=== PATIENT | male | born 1970 | race Caucasian/White ===

== ENCOUNTER 2017-03-01 13:12 | Day surgery (SDC) | payer BC ==
--- NOTE | ~2017-03-01 | OP ---
Record Of Operation [facility] [address] [place]. [address] NAME: AYAD SOLOMON : 70 STATUS : [facility]#: [id number] AGE: 46 ADM/REG DATE : 03/01/17 MR#: [id number] REPORT SERV DATE: 03/02/17 DICTATED BY: SHUKRI HUBBARD DATE: 03/01/17 REPORT STATUS : Draft TRANSCRIBED BY: RONNY DATE: 03/01/17 DATE OF PROCEDURE: PREPROCEDURE DIAGNOSIS: Thrombosclerosis. POSTPROCEDURE DIAGNOSIS: Thrombosclerosis. PROCEDURE: Right IJ port placement with ultrasound and fluoroscopic guidance. FINISHING LAB TECHNICIAN: Shelby. DESCRIPTION OF PROCEDURE: The patient was taken to the operating room, induced under MAC anesthetic, prepped and draped in the usual sterile fashion. An ultrasound was used to identify both the right and left internal jugular veins, these were larger lateral and anterior to the pulsatile carotid and they both compressed easily. Once the copy was placed on the chart, then the patient was prepped and draped. Local anesthetic was injected just above the clavicle at the neck. Ultrasound was used to identify the right internal jugular. The aspirating needle was used to penetrate the vein. There was a venous flush. The syringe was removed. A wire placed via Seldinger technique. Fluoro confirmed placement in the superior vena cava. The needle was removed and the wire was pinned to the drapes. Then 2 x 2 blocks was injected with local anesthetic. Two finger breaths below the clavicle, 2 cm incision made with a scalpel blade and a port pocket was created using cautery. The port was sewn into place with stay sutures on either side. Both of these were tagged and then local anesthetic was injected from the port pocket site to the neck incision. A stab incision was made over the wire at the neck and then the tunneler which was attached already to flush tubing was run from the port pocket site to the lateral neck incision. Care was brought out through the neck incision. The tunnel was cut off the tubing on a diagonal and then great care was taken in placement of the obturator over the wire using fluoro and pressure to stabilize the neck and overlying skin in order to guide the obturator through the right internal jugular to the SVC. The obturator and wire were removed. The tubing placed down the sheath to 20 cm and aspirated and flushed easily. It was held in place at the neck incision as the sheath was removed. Again, it flushed easily. Fluoro confirmed placement of the tip at the superior vena cava just above the right atrium. Then, the tubing was tagged using a rubber shod was cut to size, dilated, attached to the port and locked into place. The port aspirated and flushed easily with a Ormero needle. Then, the port was placed into the pocket. The two stay sutures were tied and cut. The port pocket site was closed with interrupted 3-0 Vicryl suture followed by 4-0 Monocryl. The neck site was closed with an interrupted 3-0 Vicryl. The patient was cleaned and dried followed by benzoin, Steri-Strips, Telfa, and Tegaderm. He tolerated the procedure well and chest x-ray will be obtained in recovery. JOSÉ MIGUEL/RONNY Shukri Record Of Operation [facility] [id number] [place]. [address] NAME: AYAD SOLOMON : 70 STATUS : [facility]#: [id number] AGE: 46 ADM/REG DATE : 03/01/17 MR#: [id number] REPORT SERV DATE: 03/02/17 DICTATED BY: SHUKRI HUBBARD DATE: 03/01/17 REPORT STATUS : Draft TRANSCRIBED BY: RONNY DATE: 03/01/17 Clementina Hubbard / [id number] CC: Clementina Holbrook M.D. Camille Sommer, MD Gregory R. [place], MD
[~2017-03-01 13:12] MED LIST: CRESTOR10 PO; MIRALAX POWDER1 PKT PO; PRILOSEC40 MG PO; ZYRTEC ALLGY10 MG PO
[2017-03-01 13:46] LABS: HEMATOCRIT 42.9 % (40.0-51.0); HEMOGLOBIN 15.3 g/dL (13.6-17.8)
[2017-06-17] MEDS ORDERED: NORCO1 TA2 PO (10:18)
== END 2017-03-01 20:38 | disposition home or self-care (01) ==
LOC: SDC 13:12
PROVIDERS: Surgery
PROC: 05HM33Z Insertion of Infusion Device into Right Internal Jugular Vein, Percutaneous Approach (ICD-10-PCS; principal; 2017-03-01 15:15)
DX: I82.890 Acute embolism and thrombosis of other specified veins (principal); E78.00 Pure hypercholesterolemia, unspecified; K21.9 Gastro-esophageal reflux disease without esophagitis; Z85.038 Personal history of other malignant neoplasm of large intestine; Z98.890 Other specified postprocedural states; Z92.3 Personal history of irradiation; Z79.899 Other long term (current) drug therapy
CPT/HCPCS: 71010; 77001; 85014; 85018; C1788; J0690; J1885; J2250; J2405; J3010; Q9967